=== PATIENT | male | born 1960 | race Caucasian/White ===

== ENCOUNTER 2016-09-04 08:26 | Day surgery (SDC) | payer OTHER ==
[2016-08-30 10:59] VITALS: BMI 49.7
[2016-09-04] MEDS ORDERED: PROPOFOL 20 ML ONE ×2 (08:59)
[2016-09-04 11:24] VITALS: TEMP 98.3
[2016-09-04 12:08] VITALS: BP 112/70; PULSE 60
--- NOTE | 2016-09-05 16:19 | PATH ---
Surgical Pathology Report Patient Name: DANISHA MURRELL [facility]. Rec. #: [id number] /Age/Gender: 1960 (Age: 55) / M Account: [id number] [facility] Taken: 09/04/2016 Received: 09/04/2016 Reported: 09/05/2016 Physicians: Eric Williamson M.D. Specimen(s) Received A: BX DUODENUM B: BX ANTRUM C: POLYP BELOW GE JUNCTION D: SPLENIC BIOPSY E: BX SIGMOID Clinical History GERD, rule out colon cancer Rule out celiac disease, gastritis, gastric polyp, colonic polyps Final Diagnosis A. DUODENUM, BIOPSY: DUODENAL MUCOSA WITH NO PATHOLOGIC FINDINGS. Note: Features suggestive of celiac disease are not identified in this biopsy. B. ANTRUM, BIOPSY: SEVERE CHRONIC ACTIVE GASTRITIS. IMMUNOSTAIN SHOWS NUMEROUS H. PYLORI ORGANISMS. C. POLYP BELOW GE JUNCTION, BIOPSY: POLYPOID GASTRIC CARDIA-TYPE MUCOSA SHOWING SEVERE CHRONIC ACTIVE GASTRITIS. NUMEROUS H. PYLORI ORGANISMS ARE IDENTIFIED. D. SPLENIC, BIOPSY: HYPERPLASTIC POLYP. E. SIGMOID, BIOPSY: TUBULAR ADENOMA. Electronically Signed Aixa Conteh M.D. Gross Description A. Received in formalin, labeled "duodenum" is a oneill, irregular portion of soft tissue measuring 0.4 cm. in greatest dimension. The specimen is submitted in toto in one cassette. B. Received in formalin, labeled "antrum" are 2 oneill, irregular portions of soft tissue measuring 0.4 and 0.5 cm. in greatest dimension. The specimens are submitted in toto in one cassette. C. Received in formalin, labeled "polyp below GE junction" is a oneill, irregular portion of soft tissue measuring 0.4 cm. in greatest dimension. The specimen is submitted in toto in one cassette. D. Received in formalin, labeled "splenic" is a oneill, irregular portion of soft tissue measuring 0.4 cm. in greatest dimension. The specimen is submitted in toto in one cassette. E. Received in formalin, labeled "sigmoid" is a oneill, irregular portion of soft tissue measuring 0.6 cm. in greatest dimension. The specimen is submitted in toto in one cassette. 09/04/2016 saudi09/04/2016
== END 2016-09-04 12:00 | disposition home or self-care (01) ==
LOC: FASU-ENDO 08:26
PROVIDERS: ATTEND Internal Medicine Gastroenterology
PROC: 0DB98ZX Excision of Duodenum, Via Natural or Artificial Opening Endoscopic, Diagnostic (ICD-10-PCS; 2016-09-04)
PROC: 0DBL8ZX Excision of Transverse Colon, Via Natural or Artificial Opening Endoscopic, Diagnostic (ICD-10-PCS; principal; 2016-09-04 10:39)
PROC: 0DBN8ZX Excision of Sigmoid Colon, Via Natural or Artificial Opening Endoscopic, Diagnostic (ICD-10-PCS; 2016-09-04 10:39)
PROC: 0DB48ZX Excision of Esophagogastric Junction, Via Natural or Artificial Opening Endoscopic, Diagnostic (ICD-10-PCS; 2016-09-04 10:39)
DX: Z12.11 Encounter for screening for malignant neoplasm of colon (principal); D12.5 Benign neoplasm of sigmoid colon; K63.5 Polyp of colon; K31.89 Other diseases of stomach and duodenum; D13.1 Benign neoplasm of stomach; R12 Heartburn; K29.50 Unspecified chronic gastritis without bleeding
CPT/HCPCS: 88305-TC; 88342-TC